=== PATIENT | female | born 1960 | race Two or more races ===

== ENCOUNTER 2017-07-19 09:04 | Emergency (ER) | payer OTHER ==
[2017-07-19 09:09] VITALS: BMI 35.2
--- NOTE | 2017-07-19 09:19 | PDOC ---
Attending Attestation - Resident Resident Name: Ben Osman - ED Attending Attestation I have performed the following: I have examined & evaluated the patient, The case was reviewed & discussed with the resident, I agree w/resident's findings & plan, Exceptions are as noted - HPI HPI: 07/19/17 09:52 56 year old female c/ hx HLD p/w chest pain x 1 month. States has had intermittent chest pressure with radiation to left shoulder. Occasionally pleuritic but denies shortness of breath. The patient has seen Dr. Arellano from cardiology. In June, has had a treadmill stress test reportedly negative. Also had a holter monitor which was reportedly negative. Patient is scheduled to have an outpatient noncontrast CT chest to r/o mass, as per prescription from Dr. Arellano. Today, started to note some worsening pleuritic chest pain. Denies fevers, chills. Endorses nausea. Came into ED because of worsening pain. - Physicial Exam PE: 07/19/17 09:53 GENERAL: Awake, alert, and fully oriented, in no acute distress. HEAD: No signs of trauma EYES: PERRLA, EOMI, sclera anicteric, conjunctiva clear ENT: Auricles normal inspection, hearing grossly normal, nares patent NECK: Normal ROM, supple LUNGS: Breath sounds equal, clear to auscultation bilaterally. No wheezes, and no crackles HEART: Regular rate and rhythm, normal S1 and S2, no murmurs, rubs or gallops ABDOMEN: Soft, nontender. No guarding, no rebound. No masses EXTREMITIES: Normal range of motion, no edema. No clubbing or cyanosis. No cords, erythema, or tenderness NEUROLOGICAL: Cranial nerves II through XII grossly intact. Normal speech, normal gait - Medical Decision Making 07/19/17 09:55 Vital Signs Temp Pulse Resp BP Pulse Ox 98.2 F 70 19 148/80 100 07/19/17 09:07 07/19/17 09:07 07/19/17 09:07 07/19/17 09:07 07/19/17 09:07 Patient with persistent chest pain for 1 month under workup from outpatient cardiology workup by Dr. Arellano. Will rule out SD and r/o chest mass. Labs including two troponins. Chest radiograph Chest CT Consult DR. Arellano. Dispo per results and cardiology consultation. 07/19/17 11:57 My resident had discusse my resident had spoken with heart nurse Dr. Arellano. Pt recently had stress test and echo on June 16 reportedly negative. Results discussed with DR. Arellano including CT scan results as per Dr. Osman. He agrees for two troponins and follow up as an outpatient. CT shows: No evidence of pneumonia or pulmonary mass. Subsegmental airways wall thickening with impacted distal airways in bilateral lower lobes suggesting bronchiolitis (though patient has no fever or cough; I have very low suspicion for URI), 1.5 cm solid thyroid nodule. If 2nd trop negative, can be discharged. Will inform the patient the importance of following for thyroid nodule to r/o hyper/hypothyroidism or thyroid malignancy. Heart Score/ECG Review #1 ECG reviewed & interpreted by me at: 09:10 07/19/17 09:19 NSR 59, no std/edmar, TWI III, normal axis, normal intervals, QTC 413 msec
--- NOTE | 2017-07-19 09:21 | PDOC ---
History of Present Illness - General Chief Complaint: Chest Pain Stated Complaint: CHEST PAIN/PALPITATIONS Time Seen by Provider: 07/19/17 09:14 - History of Present Illness Initial Comments: 07/19/17 09:48 The patient is a 56 year old female with a history of HLD who presents for evaluation of chest pain and palpitations. The patient reports a 1 month history of mild intermittent chest pressure and palpitations. She has been following with a trade union secretary and underwent holter monitoring which was negative. However, she reports worsening chest pain and pressure with palpitations earlier this morning prompting her presentation to the ED for evaluation. The patient currently reports some improvement in her chest pain with intermittent worsenings and continued palpitations. She otherwise denies fevers, chills, SOB, nausea, vomiting, abdominal pain, or changes with urination or bowel movements. Past History - Past Medical History Allergies/Adverse Reactions: Allergies Allergy/AdvReac Type Severity Reaction Status Date / Time No Known Allergies Allergy Verified 07/19/17 09:09 Home Medications: Ambulatory Orders Aspirin [ASA -] 81 mg PO DAILY 07/19/17 COPD: No Hypercholesterolemia: Yes Other medical history: obesity - Suicide/Smoking/Psychosocial Hx Smoking History: Never smoked Information on smoking cessation initiated: No Hx Alcohol Use: No Drug/Substance Use Hx: No Substance Use Type: None Review of Systems - Review of Systems Comments:: 07/19/17 09:52 Constitutional: No fevers, chills, fatigue, malaise HEENT: No Rhinorrhea, nasal congestion, visual changes Cardiovascular: Chest pain, palpitations. No syncope, lightheadedness Respiratory: No Cough, SOB, Hemoptysis, Gastrointestinal: No Abdominal pain, Nausea, Vomiting, Constipation, Diarrhea, Melena Genitourinary: No Dysuria, Frequency, Urgency, Hesitancy, Hematuria, Flank pain Musculoskeletal: No Myalgia, arthralgia Skin: No rashes, itching, bruising, pallor Neurologic: No Headache, Dizziness, Numbness, Weakness, or Tingling Psychiatric: No Hallucinations. No SI or HI *Physical Exam - Vital Signs Last Vital Signs Temp Pulse Resp BP Pulse Ox 98.2 F 70 19 148/80 100 07/19/17 09:07 07/19/17 09:07 07/19/17 09:07 07/19/17 09:07 07/19/17 09:07 - Physical Exam Comments: 07/19/17 09:53 General Appearance: Nourished. No Apparent Distress HEENT: EOMI, [place]. No Pharyngeal Erythema, Tonsillar Exudate, Tonsillar Erythema Neck: No Cervical Lymphadenopathy Respiratory/Chest: Lungs Clear, Normal Breath Sounds. No Crackles, Rales, Rhonchi, Wheezing Cardiovascular: Regular Rhythm, Regular Rate. No Murmur, Gallops, Rubs Gastrointestinal/Abdominal: Normal Bowel Sounds, Soft. No Guarding, Rebound, Tenderness Musculoskeletal: No CVA Tenderness Extremity: Normal Capillary Refill Integumentary: Normal Color, Dry, Warm Neurologic: Fully Oriented, Alert, Normal Mood/Affect, Normal Response, Heart Score/ECG Review #1 ECG reviewed & interpreted by me at: 09:53 General ECG Interpretation: Sinus Rhythm, Normal Rate, Normal Intervals, No acute ischemic changes ED Treatment Course - LABORATORY CBC & Chemistry Diagram: 07/19/17 09:42 04 09:42 Medical Decision Making - Medical Decision Making 07/19/17 09:53 The patient is a 56 year old female with a history of HLD who presents for evaluation of chest pain and palpitations. Differential includes but is not limited to: ACS, Mass, Pneumonia, Musculoskeletal, infectious, metabolic derangement. Given the patient's history we will obtain a cbc, cmp, troponin, ekg, chest plain film to evaluate further for possible etiologies. We will also obtain a chest CT to evaluate for any masses as per the patient's work up by her trade union secretary Dr. Loja. We will discuss the case with Dr. Loja once labs are resulted. We will continue to monitor and reassess in the meantime. 07/19/17 11:46 CBC, cmp, troponin are unremarkable. CT chest demonstrates thyroid nodules as well as air trapping and possible broncholitis as read by our radiologist however the patient does not have pulmonary complaints at this time and is not coughing. We will discuss the case with Dr. Barron and continue to monitor and reassess. 07/19/17 11:55 We discussed the case with Dr. Arellano who informed us that the patient had a recent negative stress test on 06/16/17. Given the patient's history and normal EKG, he recommended two sets of troponin and outpatient follow up. We will obtain a second troponin to evaluate further and agree with Dr. Arellano. 07/19/17 14:29 Repeat troponin is negative. We are comfortable discharging the patient home at this time with cardiology, primary care, endocrinology, and gi follow up. We discussed the results of the ct scan with the patient as well as the need to follow up regarding the patient's thyroid nodule. We discussed the results, plan and return precautions with the patient who voiced understanding and is agreeable with the plan. *DC/Admit/Observation/Transfer Diagnosis at time of Disposition: Chest pressure, Palpitations - Discharge Dispostion Disposition: HOME Condition at time of disposition: Good Admit: No - Referrals Referrals: Kishor Arellano MD [Staff Physician] - Annemarie Spain MD [Primary Care Provider] - Kg Turner MD [Staff Physician] - Shiv Sam MD [Staff Physician] - - Patient Instructions Printed Discharge Instructions: DI for Atypical Chest Pain Additional Instructions: Please return to the ER if you experience concerning or worsening symptoms including worsening pain, difficulty breathing, vomiting, or fevers. Your lab results were normal here in the ER. Your chest CT showed as nodule on your Thyroid that is nothing emergent to be done for. However you MUST follow up with your primary care provider regarding the nodule on your thyroid to evaluate for any cancerous pathology or benign tumor. Please call to schedule a follow up appointment with both your primary care provider and your trade union secretary within 2-3 days to further discuss your ER visit and management of your symptoms. We have also provided numbers for an floral artist and gi specialist that you should call within 2-3 days to schedule follow up. Print Language: CHINESE - Post Discharge Activity
[2017-07-19] MEDS ORDERED: ASPIRIN 81 MG CHEWABLE TABLETS PO ONE (09:51)
[2017-07-19] MEDS ORDERED: ASPIRIN 81 MG CHEWABLE TABLETS ONE (09:57)
[2017-07-19 10:21] LABS: BASO % 0.9 % (0-2.0); EOS % 2.5 % (0-4.5); HEMATOCRIT 39.6 % (32.4-45.2); HEMOGLOBIN 12.5 GM/dL (10.7-15.3); LYMPH % 26.3 % (8-40); MCH 25.3 pg (25.7-33.7); MCHC 31.6 g/dl (32.0-36.0); MEAN CELL VOLUME 80.1 fl (80-96); MEAN PLT VOLUME 8.5 fl (7.5-11.1); MONO % 6.6 % (3.8-10.2); NEUT % 63.7 % (42.8-82.8); PLATELET COUNT 232 K/MM3 (134-434); RBC 4.95 M/mm3 (3.60-5.2); RDW 15.2 % (11.6-15.6); WHITE BLOOD COUNT 6.9 K/mm3 (4.0-10.0)
--- NOTE | 2017-07-19 10:29 | EKG ---
Test Reason : Blood Pressure : / mmHG Vent. Rate : 059 BPM Atrial Rate : 059 BPM P-R Int : 122 ms QRS Dur : 086 ms QT Int : 418 ms P-R-T Axes : -03 014 010 degrees QTc Int : 413 ms SINUS BRADYCARDIA OTHERWISE NORMAL ECG NO PREVIOUS ECGS AVAILABLE Confirmed by MD Jef, Ben ([id number]) on 07/19/2017 10:29:43 AM Referred By: Confirmed By:Ben Fuchs MD
[2017-07-19 10:43] LABS: ALBUMIN 3.8 g/dl (3.4-5.0); ANION GAP 5 (8-16); BILIRUBIN,TOTAL 0.3 mg/dL (0.2-1.0); BLOOD UREA NITROGEN 11 mg/dL (7-18); CALCIUM 8.6 mg/dL (8.5-10.1); CHLORIDE 106 mmol/L (98-107); CO2 31 mmol/L (21-32); CREATININE 0.7 mg/dL (0.55-1.02); GLUCOSE,RANDOM 102 mg/dL (74-106); SGOT/AST 24 U/L (15-37); SGPT/ALT 28 U/L (12-78); SODIUM 142 mmol/L (136-145); TOT PROT 7.6 g/dl (6.4-8.2)
[2017-07-19 10:45] LABS: ALK PHOS 109 U/L (45-117)
[2017-07-19 12:52] VITALS: BP 111/60; PULSE 60; TEMP 97.9
== END 2017-07-19 14:44 | disposition home or self-care (01) ==
LOC: JER 09:04
DX: R07.89 Other chest pain (principal); R00.2 Palpitations; E78.00 Pure hypercholesterolemia, unspecified
CPT/HCPCS: 36415; 71045-TC-FY; 71250-TC; 80053; 82550; 84484; 85025; 93005; 93010; 99284-25

== ENCOUNTER 2023-11-25 15:25 | Observation (INO) | payer OTHER ==
[2023-11-25 17:24] LABS: EOS % 1.6 % (0-4.5); HEMATOCRIT 37.7 % (32.4-45.2); HEMOGLOBIN 12.3 GM/dL (10.7-15.3); MCH 25.8 pg (25.7-33.7); MCHC 32.7 g/dl (32.0-36.0); MEAN CELL VOLUME 79.1 fl (80-96); MEAN PLT VOLUME 8.5 fl (7.5-11.1); MONO % 6.3 % (3.8-10.2); NEUT % 70.1 % (42.8-82.8); PLATELET COUNT 199 10^3/uL (134-434); RBC 4.77 M/mm3 (3.60-5.2); RDW 14.3 % (11.6-15.6); WHITE BLOOD COUNT 6.9 K/mm3 (4.0-10.0)
[2023-11-25 17:49] LABS: POTASSIUM 3.7 mmol/L (3.5-5.1)
[2023-11-25 17:51] LABS: ALBUMIN 3.7 g/dl (3.4-5.0); BLOOD UREA NITROGEN 14.3 mg/dL (7-18)
[2023-11-25 17:54] LABS: CREATININE 0.8 mg/dL (0.55-1.3)
[2023-11-25 17:56] LABS: BILIRUBIN,TOTAL 0.6 mg/dL (0.2-1); TOT PROT 7.1 g/dl (6.4-8.2)
[2023-11-25 17:59] LABS: N-TERMINAL BNP 71.1 pg/ml (5-125)
[2023-11-26 06:11] LABS: HEMATOCRIT 37.9 % (32.4-45.2); HEMOGLOBIN 12.4 GM/dL (10.7-15.3); MCH 26.1 pg (25.7-33.7); MCHC 32.8 g/dl (32.0-36.0); MEAN CELL VOLUME 79.4 fl (80-96); PLATELET COUNT 196 10^3/uL (134-434); RBC 4.77 M/mm3 (3.60-5.2); RDW 14.5 % (11.6-15.6); WHITE BLOOD COUNT 7.5 K/mm3 (4.0-10.0)
[2023-11-26 06:12] LABS: BASO % 0.8 % (0-2.0); EOS % 1.6 % (0-4.5); LYMPH % 26.1 % (8-40); MEAN PLT VOLUME 8.5 fl (7.5-11.1); MONO % 6.8 % (3.8-10.2); NEUT % 64.7 % (42.8-82.8)
[2023-11-26] MEDS: MAG HYDROX/AL HYDROX/SIMETH 30 ML UNIT-DOSE CUP PO SCH (06:26)
[2023-11-26] MEDS: metoPROLOL SUCCINATE 25 MG TAB.SR.24H (FP) PO SCH (06:26)
[2023-11-26 06:31] LABS: POTASSIUM 3.6 mmol/L (3.5-5.1)
[2023-11-26 06:35] LABS: CALCIUM 8.9 mg/dL (8.5-10.1); MAGNESIUM 2.3 mg/dL (1.8-2.4)
[2023-11-26 06:36] LABS: ALBUMIN 3.6 g/dl (3.4-5.0)
[2023-11-26 06:39] LABS: CREATININE 0.7 mg/dL (0.55-1.3); PHOSPHOROUS 3.2 mg/dL (2.5-4.9)
[2023-11-26 06:40] LABS: BILIRUBIN,TOTAL 1.2 mg/dL (0.2-1); TOT PROT 6.9 g/dl (6.4-8.2)
[2023-11-26] MEDS ORDERED: MAG HYDROX/AL HYDROX/SIMETH 30 ML UNIT-DOSE CUP ONE (07:01)
[2023-11-26 07:10] LABS: EPI CELLS 1 /uL (0-25.1); HYALINE CASTS 1 /uL (0-3.1); PH,URINE 7.5 (5.0-8.0); URINE APPEARANCE CLEAR; URINE BACTERIA 4140 /uL (0-1359); URINE BILIRUBIN NEGATIVE (NEGATIVE); URINE COLOR YELLOW; URINE GLUCOSE (UA) NEGATIVE (NEGATIVE); URINE KETONE NEGATIVE (NEGATIVE); URINE LEUK ESTERASE 1+ (NEGATIVE); URINE NITRITE NEGATIVE (NEGATIVE); URINE PROTEIN NEGATIVE (NEGATIVE); URINE RBC 23 /uL (0-23.9); URINE WBC 161 /uL (0-25.8)
[2023-11-26] MEDS: INSULIN ASPART SLIDING SCALE (NOVOLOG) 1 VIAL SQ SCH (10:00)
[2023-11-26] MEDS: PANTOPRAZOLE 40 MG TABLET PO SCH (10:50)
[2023-11-26] MEDS: APIXABAN 5 MG TABLET PO SCH (10:50)
[2023-11-26] MEDS: metFORMIN HCL 500 MG TABLET (FP) PO SCH (17:40)
[2023-11-26] MEDS ORDERED: metFORMIN HCL 500 MG TABLET (FP) ONE (17:43)
[2023-11-26] MEDS: ATORVASTATIN CA 80 MG TABLET (FP) PO SCH (22:04)
[2023-11-27 01:10] VITALS: BMI 35.4
[2023-11-27 07:34] LABS: POTASSIUM 4.5 mmol/L (3.5-5.1)
[2023-11-27 07:40] LABS: CREATININE 0.9 mg/dL (0.55-1.3)
[2023-11-27 08:23] LABS: BASO % 0.5 % (0-2.0); EOS % 2.1 % (0-4.5); HEMATOCRIT 38.6 % (32.4-45.2); HEMOGLOBIN 12.5 GM/dL (10.7-15.3); LYMPH % 26.9 % (8-40); MCH 25.9 pg (25.7-33.7); MCHC 32.3 g/dl (32.0-36.0); MONO % 5.8 % (3.8-10.2); NEUT % 64.7 % (42.8-82.8); PLATELET COUNT 203 10^3/uL (134-434); RBC 4.82 M/mm3 (3.60-5.2); RDW 14.4 % (11.6-15.6)
[2023-11-27] MEDS: CEFTRIAXONE 1 GM in DEXTROSE 5%-WATER - 50 ML IVPB SCH (17:37)
[2023-11-28 08:11] LABS: HEMATOCRIT 37.7 % (32.4-45.2); HEMOGLOBIN 12.1 GM/dL (10.7-15.3); MCH 25.7 pg (25.7-33.7); MCHC 32.2 g/dl (32.0-36.0); MEAN CELL VOLUME 79.9 fl (80-96); MEAN PLT VOLUME 8.7 fl (7.5-11.1); PLATELET COUNT 190 10^3/uL (134-434); RBC 4.72 M/mm3 (3.60-5.2); RDW 14.3 % (11.6-15.6); WHITE BLOOD COUNT 7.9 K/mm3 (4.0-10.0)
[2023-11-28 08:24] LABS: POTASSIUM 4.2 mmol/L (3.5-5.1)
[2023-11-28 08:26] LABS: CALCIUM 8.8 mg/dL (8.5-10.1)
[2023-11-28 08:27] LABS: ALBUMIN 3.5 g/dl (3.4-5.0)
[2023-11-28 08:30] LABS: CREATININE 0.8 mg/dL (0.55-1.3)
[2023-11-28 08:31] LABS: TOT PROT 6.6 g/dl (6.4-8.2)
[2023-11-28 13:10] VITALS: BP 112/74; PULSE 60; RESP 16; TEMP 98.4
== END 2023-11-28 15:56 | disposition home or self-care (01) ==
LOC: JER 15:25 → JERBED 22:06 → J4S 11-26 19:00
PROVIDERS: ADMIT Internal Medicine; ATTEND Internal Medicine
DX: I48.92 Unspecified atrial flutter (principal); N39.0 Urinary tract infection, site not specified; R07.89 Other chest pain; E78.5 Hyperlipidemia, unspecified; E11.9 Type 2 diabetes mellitus without complications; Z79.01 Long term (current) use of anticoagulants
CPT/HCPCS: 36415; 71046-TC-FY; 74019-TC-FY; 80048; 80053; 81003; 82962; 83036; 83735; 83880; 84100; 84443; 84484; 85025; 85027; 87086; 87186; 93005; 93010; 93306-TC; 96365; 99285-25; G0378

== ENCOUNTER 2024-06-09 19:46 | Emergency (ER) | payer OTHER ==
[2024-06-09 19:50] VITALS: RESP 18; BMI 37.2
[2024-06-09 21:55] LABS: BASO % 0.9 % (0-2.0); EOS % 0.6 % (0-4.5); HEMATOCRIT 38.7 % (32.4-45.2); HEMOGLOBIN 12.8 GM/dL (10.7-15.3); LYMPH % 21.7 % (8-40); MCH 25.9 pg (25.7-33.7); MCHC 33.1 g/dl (32.0-36.0); MEAN CELL VOLUME 78.3 fl (80-96); MEAN PLT VOLUME 8.4 fl (7.5-11.1); MONO % 5.5 % (3.8-10.2); NEUT % 71.3 % (42.8-82.8); PLATELET COUNT 212 10^3/uL (134-434); RBC 4.94 M/mm3 (3.60-5.2); WHITE BLOOD COUNT 8.6 K/mm3 (4.0-10.0)
[2024-06-09] MEDS ORDERED: ACETAMINOPHEN 325 MG TABLET (FP) ONE (22:00)
[2024-06-09 22:08] LABS: INR 1.11 (0.83-1.09); PROTHROMBIN TIME (PATIENT) 12.1 SEC (9.7-13.0)
[2024-06-09] MEDS: ACETAMINOPHEN 500 MG TABLET (FP) PO ONE (22:08)
[2024-06-09] MEDS: SODIUM CHLORIDE 0.9% 500 ML INFUS.BAG IV ONE (22:08)
[2024-06-09 22:11] LABS: ACTIVATED PTT 29.2 SECONDS (25.2-36.5)
[2024-06-09 22:36] LABS: POTASSIUM 3.4 mmol/L (3.5-5.1)
[2024-06-09 22:37] LABS: ALBUMIN 3.8 g/dl (3.4-5.0); CALCIUM 9.4 mg/dL (8.5-10.1)
[2024-06-09 22:42] LABS: CREATININE 0.9 mg/dL (0.55-1.3)
[2024-06-09 22:43] LABS: BILIRUBIN,TOTAL 0.5 mg/dL (0.2-1); TOT PROT 7.6 g/dl (6.4-8.2)
[2024-06-10 00:52] VITALS: TEMP 98.7
[2024-06-10 00:53] VITALS: BP 128/60; PULSE 78
== END 2024-06-10 01:48 | disposition home or self-care (01) ==
LOC: JER 19:46
DX: S00.03XA Contusion of scalp, initial encounter (principal); R42 Dizziness and giddiness; W22.8XXA Striking against or struck by other objects, initial encounter; Z20.822 Contact with and (suspected) exposure to COVID-19
CPT/HCPCS: 0241U-QW; 36415; 70450-TC; 71046-TC-FY; 72125-TC; 80053; 83735; 84484; 85025; 85610; 85730; 93005; 93010; 99285-25